=== PATIENT | male | born 1945 | race Caucasian/White ===

== ENCOUNTER 2024-08-01 16:52 | Emergency (ER) | payer MEDICARE, BC ==
[2024-08-01] MEDS: Lidocaine 1% with EPINEPHrine 1:100,000 20 ML MDV INJECT SCH (17:24)
[2024-08-01] MEDS ORDERED: Sulfamethoxazole/Trimethoprim 800-160 MG Tab ONE (17:30)
== END 2024-08-01 17:45 | disposition home or self-care (01) ==
LOC: LB.ED 16:52
DX: S81.812A Laceration without foreign body, left lower leg, initial encounter (principal); E11.9 Type 2 diabetes mellitus without complications; Z88.8 Allergy status to other drugs, medicaments and biological substances; Z88.1 Allergy status to other antibiotic agents; Z79.899 Other long term (current) drug therapy; W26.8XXA Contact with other sharp object(s), not elsewhere classified, initial encounter
CPT/HCPCS: 12002; 99282; A9270-GY; J2004